=== PATIENT | male | born 1965 | race Caucasian/White ===

== ENCOUNTER 2022-04-04 08:05 | Emergency (ER) | payer OTHER, SELFPAY ==
[2022-04-04] MEDS ORDERED: dexAMETHasone 10 MG/ML VIAL ONE (08:23)
[2022-04-04] MEDS ORDERED: CYCLOBENZAPRINE 10 MG TAB ONE (08:24)
--- NOTE | 2022-04-04 09:02 | RAD REPORT ---
EXAM DESCRIPTION: RAD - Lumbar Spine 3 Views - 04/04/2022 8:55 am CLINICAL HISTORY: Back pain FINDINGS: Pedicular screws united by rods have been placed L4-S1. A lucency is present within a metal bar which extends horizontally posterior to L5 presumably a break in the hardware. Marked anterior subluxation L5 on S1 with disc space narrowing. Curvilinear wire along the right aspect of T12 to the L4 presumably a neurostimulator device and shou ld be correlated clinically.
--- NOTE | 2022-04-04 09:10 | EDPHYS ---
Physician Documentation [facility] Name: Naveen Rudolph Age: 57 yrs Sex: Male : 1965 Arrival Date: 04/04/2022 Time: 08:09 Bed 13 Private MD: ED Physician Jeremy Mejia HPI: 04/04 08:08 This 57 yrs old Male presents to ER via Ambulatory with complaints of Back Pain. jh7 08:08 The patient presents with pain that is chronic, with no known mechanism of injury. The jh7 symptoms are located in the lumbar area and sacrum. Associated signs and symptoms: Pertinent negatives: abdominal pain, chest pain, dysuria, fever, nausea, tingling, vomiting. 57-year-old male presents with chronic back pain for over a year. Patient states that he was injured in 1990 and had a lumbar fusion in 2005. States that he injured his back again a year ago and had a recent x-ray at a chiropractor showing subluxation at L5. Denies any new symptoms just states that he has chronic pain. Reports that pain worsens with position changes. Denies dysuria or any new symptoms.. Historical: - Allergies: 08:19 No Known Allergies; iw - Home Meds: 08:19 None [Active]; iw - PMHx: 08:19 back pain; iw - PSHx: 08:19 lumbar fusion; iw - Immunization history:: Client reports receiving the 2nd dose of the Covid vaccine. - Social history:: Smoking status: Patient denies any tobacco usage or history of. ROS: 08:08 Constitutional: Negative for fever, chills, and weight loss, Eyes: Negative for injury, jh7 pain, redness, and discharge, Neck: Negative for injury, pain, and swelling, Cardiovascular: Negative for chest pain, palpitations, and edema, Respiratory: Negative for shortness of breath, cough, wheezing, and pleuritic chest pain, Abdomen/GI: Negative for abdominal pain, nausea, vomiting, diarrhea, and constipation, MS/Extremity: Negative for injury and deformity, Skin: Negative for injury, rash, and discoloration, Neuro: Negative for headache, weakness, numbness, tingling, and seizure. 08:08 Back: Positive for pain at rest, pain with movement, Negative for acute changes. 08:08 All other systems are negative. Exam: 08:08 Constitutional: This is a well developed, well nourished patient who is awake, alert, jh7 and in no acute distress. Head/Face: Normocephalic, atraumatic. Eyes: Pupils equal round and reactive to light, extra-ocular motions intact. Lids and lashes normal. Conjunctiva and sclera are non-icteric and not injected. Cornea within normal limits. Periorbital areas with no swelling, redness, or edema. Neck: Trachea midline, no thyromegaly or masses palpated, and no cervical lymphadenopathy. Supple, full range of motion without nuchal rigidity, or vertebral point tenderness. No Meningismus. Cardiovascular: Regular rate and rhythm with a normal S1 and S2. No gallops, murmurs, or rubs. Normal PMI, no JVD. No pulse deficits. Respiratory: Lungs have equal breath sounds bilaterally, clear to auscultation and percussion. No rales, rhonchi or wheezes noted. No increased work of breathing, no retractions or nasal flaring. Abdomen/GI: Soft, non-tender, with normal bowel sounds. No distension or tympany. No guarding or rebound. No evidence of tenderness throughout. Skin: Warm, dry with normal turgor. Normal color with no rashes, no lesions, and no evidence of cellulitis. MS/ Extremity: Pulses equal, no cyanosis. Neurovascular intact. Full, normal range of motion. Neuro: Awake and alert, GCS 15, oriented to person, place, time, and situation. Cranial nerves II-XII grossly intact. Motor strength 5/5 in all extremities. Sensory grossly intact. Cerebellar exam normal. Antalgic gait. 08:08 Back: pain, that is moderate, of the sacrum and lumbar area, ROM is painful, with all movement, normal spinal alignment noted, CVA tenderness, is absent, muscle spasm, is appreciated in the lumbar area. Vital Signs: 08:19 BP 122 / 90; Pulse 81; Resp 16; Temp 98.4; Pulse Ox 99% on R/A; Weight 64.86 kg; Height iw 5 ft. 8 in. (172.72 cm); Pain 10/10; 08:57 BP 118 / 88; Pulse 80; Resp 18; Pulse Ox 98% ; ko1 08:19 Body Mass Index 21.74 (64.86 kg, 172.72 cm) iw MDM: 08:10 Patient medically screened. 7 08:40 ED course: Pt requests repeat x-rays because he states that a few weeks ago he did not jh7 fall but that he may have strained his back at the grocery store.. 09:15 Differential diagnosis: chronic back pain, Fracture Ligament Injury ruptured disc, jh7 spinal injury. Data reviewed: vital signs, nurses notes, radiologic studies, plain films. I considered the following discharge prescriptions or medication management in the emergency department Medications were administered in the Emergency Department. See MAR. Independent interpretation of the following test(s) in the Emergency Department X-Ray: My interpretation is no acute changes. Care significantly affected by the following Social Determinants of Health: Poor access to healthcare and/or lack of insurance. Counseling: I had a detailed discussion with the patient and/or guardian regarding: the historical points, exam findings, and any diagnostic results supporting the discharge/admit diagnosis, the need for outpatient follow up, a orthopedic surgeon. Response to treatment: the patient's symptoms have mildly improved after treatment. 04/04 08:40 Order name: Lumbar Spine (3 Views) XRAY [facility] 04/04 09:03 Order name: RAD; Complete Time: 09:04 EDMS Administered Medications: 08:23 Drug: Flexeril (cyclobenzaprine) 10 mg Route: PO; ko1 08:45 Follow up: Response: No adverse reaction ko1 08:23 Drug: Decadron (dexamethasone) 10 mg Route: IM; Site: left gluteus; ko1 08:45 Follow up: Response: No adverse reaction ko1 09:16 Drug: HYDROcodone-acetaminophen 5 mg-325 mg 1 tabs Route: PO; ko1 Disposition: 08:52 PA/PROMOTIONAL MARKETING AGENT's history reviewed, patient interviewed, and examined. HPI: 57-year-old male with ms3 past medical history of chronic back pain presents for back pain. Patient states he had a accident in 1990 and lumbar fusion in 2003 or 2004. Patient states he fell 1 year ago. Patient has seen chiropractics and states it was noted that one of his disc had slipped forward. Patient denies urinary or bowel incontinence, numbness, weakness. My personal exam of patient reveals: On exam patient is alert and oriented x4, no apparent distress, nontoxic appearing, ambulatory in the emergency department. Heart rate and rhythm are regular without murmurs rubs or gallops. Lungs are clear to auscultation bilaterally. Abdomen nontender to palpation with bowel sounds present. Skin is dry, and without rashes. I agree with assessment and care plan and confirm the diagnosis (es) above. Disposition Summary: 04/04/22 09:09 Discharge Ordered Location: Home [facility] Problem: chronic [facility] Symptoms: are unchanged [facility] Condition: Fair [facility] Diagnosis - Low back pain [facility] Followup: [facility] - With: Private Physician - When: 2 - 3 days - Reason: Recheck today's complaints Discharge Instructions: - Discharge Summary Sheet [facility] - Chronic Back Pain [facility] Forms: - Medication Reconciliation Form [facility] - Thank You Letter [facility] Prescriptions: - Naprosyn 500 mg Oral Tablet - take 1 tablet by ORAL route 2 times per day take with food; 30 tablet; Refills: [facility] 0, Product Selection Permitted - Zanaflex 4 mg Oral Tablet - take 1 tablet by ORAL route every 8 hours As needed; 20 tablet; Refills: 0, jh7 Product Selection Permitted Signatures: Dispatcher [employer] Mena Jones, RN RN iw Jeremy Mejia DO DO ms3 Lola Bhakta, MANAGER DISCOVERY MANAGER DISCOVERY 7 Lore Soliman, RN RN ko1 Corrections: (The following items were deleted from the chart) 09:16 08:08 57-year-old male presents with chronic back pain for over a year. Patient states [facility] that he was injured in 1990 and had a lumbar fusion in 2005. States that he injured his back again a year ago and had a recent x-ray at a chiropractor showing herniated disc at L4-L5. Denies any new symptoms just states that he has chronic pain. Reports that pain worsens with position changes. Denies dysuria or any new symptoms.. [facility]
--- NOTE | 2022-04-04 09:10 | ER ---
Nurse's Notes [facility] Name: Naveen Rudolph Age: 57 yrs Sex: Male : 1965 Arrival Date: 04/04/2022 Time: 08:09 Bed 13 Private MD: Diagnosis: Low back pain Presentation: 04/04 08:14 Chief complaint: Patient states: lower back pain for over a year, has previous fusion iw un lumbar spine, has not had insurance X 1 year and is unable to follow up with his previous surgeon. Coronavirus screen: At this time, the client does not indicate any symptoms associated with coronavirus-19. Ebola Screen: Patient negative for fever greater than or equal to 101.5 degrees Fahrenheit, and additional compatible Ebola Virus Disease symptoms Patient denies exposure to infectious person. Patient denies travel to an Ebola-affected area in the 21 days before illness onset. No symptoms or risks identified at this time. Initial Sepsis Screen: Does the patient meet any 2 criteria? No. Patient's initial sepsis screen is negative. Does the patient have a suspected source of infection? No. Patient's initial sepsis screen is negative. Risk Assessment: Do you want to hurt yourself or someone else? Patient reports no desire to harm self or others. Onset of symptoms was March 2021. 08:14 Method Of Arrival: Ambulatory iw 08:16 Acuity: DONTE 3 iw Historical: - Allergies: 08:19 No Known Allergies; iw - Home Meds: 08:19 None [Active]; iw - PMHx: 08:19 back pain; iw - PSHx: 08:19 lumbar fusion; iw - Immunization history:: Client reports receiving the 2nd dose of the Covid vaccine. - Social history:: Smoking status: Patient denies any tobacco usage or history of. Screenin:20 [facility] ED Fall Risk Assessment (Adult) History of falling in the last 3 months, ko1 including since admission No falls in past 3 months (0 pts) Confusion or Disorientation No (0 pts) Intoxicated or Sedated No (0 pts) Impaired Gait Yes (1 pt) Mobility Assist Device Used Yes (1 pt) Altered Elimination No (0 pt) Score/Fall Risk Level 0 - 2 = Low Risk Oriented to surroundings, Maintained a safe environment, Educated pt \T\ family on fall prevention, incl call for assistance when getting out of bed, Assessed \T\ reinforced patient's understanding of fall precautions, Provided non-skid footwear, Hourly rounding (assess needs \T\ fall precautionary measures) done, Used ambulatory aids as needed (educated on \T\ assisted with), Used gait belt as appropriate. Abuse screen: Denies threats or abuse. Denies injuries from another. Nutritional screening: No deficits noted. Tuberculosis screening: No symptoms or risk factors identified. Assessment: 08:20 General: Appears in no apparent distress. uncomfortable, Behavior is calm, cooperative, ko1 appropriate for age. Pain: Complains of pain in sacrum and lumbar area. Neuro: Level of Consciousness is awake, alert, obeys commands, Oriented to person, place, time, situation, Appropriate for age Tool Turret Lathe Set Up Operator are equal bilaterally Moves all extremities. Full function Gait is unsteady, Speech is normal, Facial symmetry appears normal, Pupils are PERRLA, Pupil Size: 3mm Intact. Cardiovascular: No deficits noted. Respiratory: No deficits noted. GI: No deficits noted. : No deficits noted. EENT: No deficits noted. Derm: No deficits noted. Musculoskeletal: No deficits noted. Vital Signs: 08:19 BP 122 / 90; Pulse 81; Resp 16; Temp 98.4; Pulse Ox 99% on R/A; Weight 64.86 kg; Height iw 5 ft. 8 in. (172.72 cm); Pain 10/10; 08:57 BP 118 / 88; Pulse 80; Resp 18; Pulse Ox 98% ; ko1 08:19 Body Mass Index 21.74 (64.86 kg, 172.72 cm) ED Course: 08:09 Patient arrived in ED. as 08:10 L[facility]NP [facility] 7 08:10 Lore Soliman, RN is Primary Nurse. ko1 08:16 Triage completed. iw 08:16 Arm band placed on. iw 08:20 Patient has correct armband on for positive identification. Fall risk band placed. Bed ko1 in low position. Call light in reach. Pulse ox on. NIBP on. 08:20 No provider procedures requiring assistance completed. Patient did not have IV access ko1 during this emergency room visit. 08:46 Patient moved to radiology via wheelchair. ko1 08:52 Jeremy Mejia DO is Attending Physician. ms3 08:57 Patient moved back from radiology. ko1 Administered Medications: 08:23 Drug: Flexeril (cyclobenzaprine) 10 mg Route: PO; ko1 08:45 Follow up: Response: No adverse reaction ko1 08:23 Drug: Decadron (dexamethasone) 10 mg Route: IM; Site: left gluteus; ko1 08:45 Follow up: Response: No adverse reaction ko1 09:16 Drug: HYDROcodone-acetaminophen 5 mg-325 mg 1 tabs Route: PO; ko1 Medication: 08:20 VIS not applicable for this client. ko1 Outcome: 09:09 Discharge ordered by . jacques 09:26 Discharged to home ambulatory. ko1 09:26 Condition: improved 09:26 Discharge instructions given to patient, Instructed on discharge instructions, follow up and referral plans. Demonstrated understanding of instructions, follow-up care. 09:26 Patient left the ED. ko1 Signatures: Marli Lay Irene, RN RN eJremy Dalal DO DO ms3 Lola Bhakta, DIRECTOR AERONAUTICS COMMISSION DIRECTOR AERONAUTICS COMMISSION [facility] Lore Soliman, RN RN ko1
[2022-04-04] MEDS ORDERED: HYDROCODONE/APAP 5/325 MG TAB ONE (09:16)
[2022-04-04 09:31] VITALS: TEMP 98.4
[2022-04-04 09:33] VITALS: BP 118/88; O2SAT 98
== END 2022-04-04 09:26 | disposition home or self-care (01) ==
LOC: ER 08:05
DX: M54.50 Low back pain, unspecified (principal)
CPT/HCPCS: 72100; 96372; 99283; J1100

== ENCOUNTER 2022-08-03 08:21 | Emergency (ER) | payer OTHER, SELFPAY ==
--- NOTE | 2022-08-03 08:42 | EDPHYS ---
Physician Documentation [facility] Name: Naveen Rudolph Age: 57 yrs Sex: Male : 1965 Arrival Date: 08/03/2022 Time: 08:21 Bed IW2 Private MD: ED Physician Yehuda Barclay HPI: 08/03 08:38 This 57 yrs old Male presents to ER via Unassigned with complaints of Low Back Pain. snw 08:38 The patient presents with pain and decreased range of motion, and tenderness. The snw symptoms are located in the low back. The pain does not radiate. Onset: The symptoms/episode began/occurred gradually, 18 year(s) ago, and became worse 3 day(s) ago. Associated signs and symptoms: The patient has no apparent associated signs or symptoms. Severity of symptoms: At their worst the symptoms were moderate, severe. [facility] last week. Historical: - PMHx: 09:33 Back pain; iw - PSHx: 09:33 lumbar fusion; iw ROS: 08:35 Constitutional: Negative for fever, chills, and weight loss, Eyes: Negative for injury, snw pain, redness, and discharge, ENT: Negative for injury, pain, and discharge, Neck: Negative for injury, pain, and swelling, Cardiovascular: Negative for chest pain, palpitations, and edema, Respiratory: Negative for shortness of breath, cough, wheezing, and pleuritic chest pain, Abdomen/GI: Negative for abdominal pain, nausea, vomiting, diarrhea, and constipation, : Negative for injury, bleeding, discharge, and swelling, MS/Extremity: Negative for injury and deformity, Skin: Negative for injury, rash, and discoloration, Neuro: Negative for headache, weakness, numbness, tingling, and seizure. 08:35 Back: Positive for decreased range of motion, pain at rest, pain with movement, of the low back area. Exam: 08:35 Constitutional: This is a well developed, well nourished patient who is awake, alert, snw and in no acute distress. Head/Face: Normocephalic, atraumatic. Eyes: Pupils equal round and reactive to light, extra-ocular motions intact. Lids and lashes normal. Conjunctiva and sclera are non-icteric and not injected. Cornea within normal limits. Periorbital areas with no swelling, redness, or edema. ENT: Nares patent. No nasal discharge, no septal abnormalities noted. Tympanic membranes are normal and external auditory canals are clear. Oropharynx with no redness, swelling, or masses, exudates, or evidence of obstruction, uvula midline. Mucous membranes moist. Neck: Trachea midline, no thyromegaly or masses palpated, and no cervical lymphadenopathy. Supple, full range of motion without nuchal rigidity, or vertebral point tenderness. No Meningismus. Chest/axilla: Normal chest wall appearance and motion. Nontender with no deformity. No lesions are appreciated. Cardiovascular: Regular rate and rhythm with a normal S1 and S2. No gallops, murmurs, or rubs. Normal PMI, no JVD. No pulse deficits. Respiratory: Lungs have equal breath sounds bilaterally, clear to auscultation and percussion. No rales, rhonchi or wheezes noted. No increased work of breathing, no retractions or nasal flaring. Abdomen/GI: Soft, non-tender, with normal bowel sounds. No distension or tympany. No guarding or rebound. No evidence of tenderness throughout. Skin: Warm, dry with normal turgor. Normal color with no rashes, no lesions, and no evidence of cellulitis. MS/ Extremity: Pulses equal, no cyanosis. Neurovascular intact. Full, normal range of motion. Neuro: Awake and alert, GCS 15, oriented to person, place, time, and situation. Cranial nerves II-XII grossly intact. Motor strength 5/5 in all extremities. Sensory grossly intact. Cerebellar exam normal. Normal gait. Psych: Awake, alert, with orientation to person, place and time. Behavior, mood, and affect are within normal limits. 08:35 Back: pain, that is moderate, of the low back area, ROM is painful, with all movement. Vital Signs: 08:36 BP 142 / 93; Pulse 78; Resp 20; Temp 98; Pulse Ox 97% ; Weight 64.86 kg; Height 5 ft. 8 snw in. ; Pain 10/10; 08:36 Body Mass Index 21.74 (64.86 kg, 172.72 cm) snw 08:36 Pain Scale: Adult snw MDM: 08:40 Differential diagnosis: arthritis, strain, fracture, sciatica, Herniated disc. Data snw reviewed: vital signs, nurses notes. I considered the following discharge prescriptions or medication management in the emergency department Medications were administered in the Emergency Department. See MAR. Counseling: I had a detailed discussion with the patient and/or guardian regarding: the historical points, exam findings, and any diagnostic results supporting the discharge/admit diagnosis, the need for outpatient follow up, to return to the emergency department if symptoms worsen or persist or if there are any questions or concerns that arise at home. Special discussion: I have referred the patient to see his PCP for further evaluation of high blood pressure. Based on the history and exam findings, there is no indication for further emergent testing or inpatient evaluation. I discussed with the patient/guardian the need to see the back specialist for further evaluation of the symptoms. I discussed with the patient/guardian the need to see the primary care provider for further evaluation of the symptoms. 08:41 Patient medically screened. snw Administered Medications: 09:36 Drug: Ketorolac IM 30 mg Route: IM; Site: right gluteus; iw 09:50 Follow up: Response: No adverse reaction iw 09:36 Drug: Diazepam PO 5 mg Route: PO; iw 10:00 Follow up: Response: No adverse reaction iw Disposition Summary: 08/03/22 08:41 Discharge Ordered Location: Home snw Condition: Stable snw Diagnosis - Low back pain snw Followup: snw - With: Emergency Department - When: As needed - Reason: Worsening of condition Followup: snw - With: Private Physician - When: 5 - 6 days - Reason: Recheck today's complaints, Continuance of care, Re-evaluation by your physician Discharge Instructions: - Discharge Summary Sheet snw - Chronic Back Pain snw - Heat Therapy snw Forms: - Medication Reconciliation Form snw - Thank You Letter snw - Antibiotic Education snw - Prescription Opioid Use snw Prescriptions: - orphenadrine citrate 100 mg Oral Tablet Sustained Release - take 1 tablet by ORAL route 2 times per day As needed; 20 tablet; Refills: 0, snw Product Selection Permitted - Pepcid 20 mg Oral Tablet - take 1 tablet by ORAL route once daily; 20 tablet; Refills: 0, Product snw Selection Permitted Signatures: Ese Shannon, MALLORIEC PRODUCTION WOOD CRAFTSMAN-Csnw Mena Salinas RN RN iw
[2022-08-03] MEDS ORDERED: KETOROLAC 30 MG/ML INJ ONE (09:36)
[2022-08-03] MEDS ORDERED: DIAZEPAM 5 MG TABLET ONE (09:38)
--- NOTE | 2022-08-03 09:52 | ER ---
Nurse's Notes [facility] Name: Naveen Rudolph Age: 57 yrs Sex: Male : 1965 Arrival Date: 08/03/2022 Time: 08:21 Bed IW2 Private MD: Diagnosis: Low back pain Presentation: 08/03 09:32 Chief complaint: Patient states: lower back pain/spasms , has hx of lumbar fusion. iw Coronavirus screen: At this time, the client does not indicate any symptoms associated with coronavirus-19. Ebola Screen: Patient negative for fever greater than or equal to 101.5 degrees Fahrenheit, and additional compatible Ebola Virus Disease symptoms Patient denies exposure to infectious person. Patient denies travel to an Ebola-affected area in the 21 days before illness onset. No symptoms or risks identified at this time. Risk Assessment: Do you want to hurt yourself or someone else? Patient reports no desire to harm self or others. Onset of symptoms was August 03, 2022. 09:32 Method Of Arrival: Wheelchair iw 09:32 Acuity: DONTE 4 iw Historical: - PMHx: 09:33 Back pain; iw - PSHx: 09:33 lumbar fusion; iw Screenin:49 [facility] ED Fall Risk Assessment (Adult) History of falling in the last 3 months, iw including since admission. Abuse screen: Denies threats or abuse. Denies injuries from another. Nutritional screening: No deficits noted. Tuberculosis screening: No symptoms or risk factors identified. Assessment: 09:48 General: Appears in no apparent distress. Behavior is calm, cooperative. Pain: iw Complains of pain in low back area. Neuro: Level of Consciousness is awake, alert, obeys commands, Oriented to person, place, time, situation, Moves all extremities. Cardiovascular: Patient's skin is warm and dry. Vital Signs: 08:36 BP 142 / 93; Pulse 78; Resp 20; Temp 98; Pulse Ox 97% ; Weight 64.86 kg; Height 5 ft. 8 snw in. ; Pain 10/10; 08:36 Body Mass Index 21.74 (64.86 kg, 172.72 cm) snw 08:36 Pain Scale: Adult snw ED Course: 08:24 Patient arrived in ED. im 08:25 Ese Shannon FNP-C is PHCP. snw 08:25 Yehuda Barclay MD is Attending Physician. snw 08:40 Ese Shannon FNP-C is PHCP. snw 09:24 Mena Salinas, RN is Primary Nurse. iw 09:33 Triage completed. iw 09:48 No provider procedures requiring assistance completed. Patient did not have IV access iw during this emergency room visit. 09:48 Patient has correct armband on for positive identification. iw Administered Medications: 09:36 Drug: Ketorolac IM 30 mg Route: IM; Site: right gluteus; iw 09:50 Follow up: Response: No adverse reaction iw 09:36 Drug: Diazepam PO 5 mg Route: PO; iw 10:00 Follow up: Response: No adverse reaction iw Outcome: 08:41 Discharge ordered by . snw 09:51 Patient left the ED. iw Signatures: Ese Shannon FNP-C TERMINAL GAUGER SUPERVISOR-Csnw eMna Salinas, RN RN iw Lavonne Galdamez im
[2022-08-03 09:56] VITALS: BP 142/93; TEMP 98; O2SAT 97
== END 2022-08-03 09:51 | disposition home or self-care (01) ==
LOC: ER 08:21
DX: M54.50 Low back pain, unspecified (principal)
CPT/HCPCS: 96372; 99284

== ENCOUNTER 2022-10-08 14:31 | Emergency (ER) | payer OTHER ==
[2022-10-08] MEDS ORDERED: dexAMETHasone 10 MG/ML VIAL ONE (16:01)
[2022-10-08] MEDS ORDERED: KETOROLAC 30 MG/ML INJ ONE (16:01)
--- NOTE | 2022-10-08 16:38 | EDPHYS ---
Physician Documentation [facility] Name: Naveen Rudolph Age: 57 yrs Sex: Male : 1965 Arrival Date: 10/08/2022 Time: 14:31 Bed 9 Private MD: ED Physician Cande Javier HPI: 10/08 15:45 This 57 yrs old Male presents to ER via Ambulatory with complaints of Back Pain. cp 15:45 The patient presents with pain that is chronic. The symptoms are located in the low cp back. 15:45 Onset: The symptoms/episode began/occurred chronically has been worse over past 6 cp months. 15:45 The pain radiates to the buttocks and right and left upper legs. cp 15:45 Associated signs and symptoms: Pertinent negatives: abdominal pain, dysuria, fever, cp incontinence, numbness, urinary retention, weakness. 15:45 The problem was sustained Patient reports worsening low back pain today. Denies fall cp and/or trauma. Hx of chronic low back pain with lumbar fusion. Severity of symptoms: in the emergency department the symptoms. Historical: - Allergies: 14:57 No Known Allergies; iw - PMHx: 14:57 Back pain; iw - PSHx: 14:57 lumbar fusion; iw - Immunization history:: Adult Immunizations unknown. - Social history:: Smoking status: unknown. ROS: 15:50 Constitutional: Negative for body aches, chills, fever, poor PO intake. cp 15:50 Cardiovascular: Negative for chest pain, edema, palpitations. cp Exam: 15:55 Constitutional: The patient appears in no acute distress, alert, awake, cp non-diaphoretic, non-toxic, well developed, well nourished, uncomfortable. 15:55 Head/Face: Normocephalic, atraumatic. cp 15:55 Eyes: Periorbital structures: appear normal, Conjunctiva: normal, no exudate, no injection, Sclera: no appreciated abnormality, Lids and lashes: appear normal, bilaterally. 15:55 ENT: External ear(s): are unremarkable, Nose: is normal, Mouth: Lips: moist, Oral mucosa: pink and intact, moist, Posterior pharynx: is normal, airway is patent, no erythema, no exudate. 15:55 Chest/axilla: Inspection: normal. 15:55 Cardiovascular: Rate: normal, Rhythm: regular, Edema: is not appreciated, JVD: is not appreciated. 15:55 Respiratory: the patient does not display signs of respiratory distress, Respirations: normal, no use of accessory muscles, no retractions, labored breathing, is not present, Breath sounds: are clear throughout, no decreased breath sounds, no stridor, no wheezing. 15:55 Abdomen/GI: Inspection: abdomen appears normal, Bowel sounds: active, all quadrants, Palpation: abdomen is soft and non-tender, in all quadrants. 15:55 Back: pain, that is moderate, of the low back area, ROM is painful, with all movement. 15:55 Skin: cellulitis, is not appreciated, no rash present. 15:55 Neuro: Motor: moves all fours, strength is normal, Sensation: no obvious gross deficits, Gait: is steady, with use of walker, Deep tendon reflexes are 2+ (normal) in the right patellar, right Achilles, left patellar and left Achilles. Vital Signs: 14:55 BP 117 / 83; Pulse 98; Resp 16; Temp 98.9; Pulse Ox 97% on R/A; Weight 64.86 kg; Height iw 5 ft. 8 in. ; Pain 10/10; 16:30 Pain 2/10; jl7 17:00 BP 115 / 81; Pulse 95; Resp 15; Pulse Ox 100% ; Pain 2/10; jl7 14:55 Body Mass Index 21.74 (64.86 kg, 172.72 cm) iw 14:55 Pain Scale: Adult iw 16:30 Pain Scale: Adult jl7 17:00 Pain Scale: Adult jl7 MDM: 15:03 Patient medically screened. 16:00 Differential diagnosis: chronic back pain, ruptured disc, Ureterolithiasis vertebral cp fracture, sciatica, spinal stenosis, cauda equina. 16:35 Data reviewed: vital signs, nurses notes. cp 16:35 I considered the following discharge prescriptions or medication management in the emergency department Medications were administered in the Emergency Department. See MAR. Care significantly affected by the following chronic conditions: low back pain. Counseling: I had a detailed discussion with the patient and/or guardian regarding the historical points, exam findings, and any diagnostic results supporting the discharge/admit diagnosis, to return to the emergency department if symptoms worsen or persist or if there are any questions or concerns that arise at home. Response to treatment: the patient's symptoms have markedly improved after treatment, and as a result, I will discharge patient. Administered Medications: 15:57 Drug: Dexamethasone IM 10 mg Route: IM; Site: left deltoid; cm10 16:59 Follow up: Response: No adverse reaction jl7 15:57 Drug: Ketorolac IM 30 mg Route: IM; Site: right deltoid; cm10 16:30 Follow up: Pain 2/10 Adult; Response: No adverse reaction; Pain is decreased jl7 16:45 Drug: Lidoderm Topical Patch 5 % (700 mg/patch) 1 patches Route: Topical; Site: jl7 affected area; 17:00 Follow up: Response: No adverse reaction jl7 17:00 Follow up: Response: Medication administered at discharge. jl7 Disposition Summary: 10/08/22 16:36 Discharge Ordered Location: Home cp Problem: chronic cp Symptoms: have improved cp Condition: Stable cp Diagnosis - Lumbago with sciatica cp Followup: cp - With: Private Physician - When: 2 - 3 days - Reason: Recheck today's complaints Discharge Instructions: - Discharge Summary Sheet cp - Chronic Pain, Adult cp - Sciatica cp Forms: - Medication Reconciliation Form cp - Thank You Letter cp - Antibiotic Education cp - Prescription Opioid Use cp - Patient Portal Instructions cp - Leadership Thank You Letter cp Prescriptions: - Protonix 40 mg Oral Tablet - take 1 tablet by ORAL route once daily; 30 tablet; Refills: 0, Product cp Selection Permitted - Baclofen 10 mg Oral Tablet - take 1 tablet by ORAL route 3 times per day; 20 tablet; Refills: 0, Product cp Selection Permitted - Medrol (Juan) 4 mg Oral Tablets, Dose Pack - take 1 tablet by ORAL route as directed - follow package instructions; 1 cp packet; Refills: 0, Product Selection Permitted Signatures: Mena Salinas RN RN Yehuda Wallace PA PA cp Leal, Jahala, RN RN jl7 Farida Lay RN RN cm10
--- NOTE | 2022-10-08 16:38 | ER ---
Nurse's Notes [facility] Name: Naveen Rudolph Age: 57 yrs Sex: Male : 1965 Arrival Date: 10/08/2022 Time: 14:31 Bed 9 Private MD: Diagnosis: Lumbago with sciatica Presentation: 10/08 14:55 Chief complaint: Patient states: lumbar back pain , has chronic issues with back , iw lumbar fusion in 2005 , this episode started on and off for 6 months , today ot got really bad and i almost fell because my back felt locked up. Coronavirus screen: At this time, the client does not indicate any symptoms associated with coronavirus-19. Ebola Screen: Patient negative for fever greater than or equal to 101.5 degrees Fahrenheit, and additional compatible Ebola Virus Disease symptoms Patient denies exposure to infectious person. Patient denies travel to an Ebola-affected area in the 21 days before illness onset. No symptoms or risks identified at this time. Initial Sepsis Screen: Does the patient meet any 2 criteria? No. Patient's initial sepsis screen is negative. Does the patient have a suspected source of infection? No. Patient's initial sepsis screen is negative. Risk Assessment: Do you want to hurt yourself or someone else? Patient reports no desire to harm self or others. Onset of symptoms was October 08, 2022. 14:55 Method Of Arrival: Ambulatory 14:55 Acuity: DONTE 4 iw Historical: - Allergies: 14:57 No Known Allergies; iw - PMHx: 14:57 Back pain; iw - PSHx: 14:57 lumbar fusion; iw - Immunization history:: Adult Immunizations unknown. - Social history:: Smoking status: unknown. Screenin:02 [facility] ED Fall Risk Assessment (Adult) History of falling in the last 3 months, jl7 including since admission No falls in past 3 months (0 pts) Confusion or Disorientation No (0 pts) Intoxicated or Sedated No (0 pts) Impaired Gait No (0 pts) Mobility Assist Device Used Yes (1 pt) Altered Elimination No (0 pt) Score/Fall Risk Level 0 - 2 = Low Risk Oriented to surroundings, Maintained a safe environment. Abuse screen: Denies threats or abuse. Denies injuries from another. Nutritional screening: No deficits noted. Tuberculosis screening: No symptoms or risk factors identified. Assessment: 16:02 General: Appears in no apparent distress. uncomfortable, Behavior is calm, cooperative, jl7 appropriate for age. Pain: Complains of pain in back Pain currently is 10 out of 10 on a pain scale. Neuro: Level of Consciousness is awake, alert, obeys commands, Oriented to person, place, time, situation, Gait is ambulatory with Rollator . Cardiovascular: Patient's skin is warm and dry. Respiratory: Airway is patent Respiratory effort is even, unlabored, Respiratory pattern is regular, symmetrical. Derm: Skin is pink, warm \T\ dry. Vital Signs: 14:55 BP 117 / 83; Pulse 98; Resp 16; Temp 98.9; Pulse Ox 97% on R/A; Weight 64.86 kg; Height iw 5 ft. 8 in. ; Pain 10/10; 16:30 Pain 2/10; jl7 17:00 BP 115 / 81; Pulse 95; Resp 15; Pulse Ox 100% ; Pain 2/10; jl7 14:55 Body Mass Index 21.74 (64.86 kg, 172.72 cm) iw 14:55 Pain Scale: Adult iw 16:30 Pain Scale: Adult jl7 17:00 Pain Scale: Adult jl7 ED Course: 14:37 Patient arrived in ED. rg4 14:48 Yehuda Alvarez PA is PHCP. cp 14:48 Cande Javier MD is Attending Physician. cp 14:57 Triage completed. iw 14:57 Arm band placed on. iw 15:12 Fernando Hughes, RN is Primary Nurse. jl7 16:12 No provider procedures requiring assistance completed. jl7 16:30 Provided Education on: use of call chambers. jl7 16:30 Patient has correct armband on for positive identification. jl7 17:00 Patient did not have IV access during this emergency room visit. jl7 Administered Medications: 15:57 Drug: Dexamethasone IM 10 mg Route: IM; Site: left deltoid; cm10 16:59 Follow up: Response: No adverse reaction jl7 15:57 Drug: Ketorolac IM 30 mg Route: IM; Site: right deltoid; cm10 16:30 Follow up: Pain 2/10 Adult; Response: No adverse reaction; Pain is decreased jl7 16:45 Drug: Lidoderm Topical Patch 5 % (700 mg/patch) 1 patches Route: Topical; Site: jl7 affected area; 17:00 Follow up: Response: No adverse reaction jl7 17:00 Follow up: Response: Medication administered at discharge. jl7 Medication: 16:02 VIS not applicable for this client. jl7 Outcome: 16:36 Discharge ordered by . hetal 17:00 Discharged to home ambulatory. jl7 17:00 Condition: stable 17:00 Discharge instructions given to patient, Instructed on discharge instructions, follow up and referral plans. medication usage, Demonstrated understanding of instructions, follow-up care, medications, Prescriptions given X 1. 17:01 Patient left the ED. jl7 Signatures: Mena Salinas, RN RN iw Yehuda Alvarez PA PA cp Garcia, Rubi rg4 Fernando Hughes RN RN jl7 Farida Lay RN RN cm10 Corrections: (The following items were deleted from the chart) 14:57 14:55 BP 117 / 83; Pulse 98bpm; Resp 16bpm; Pulse Ox 97% RA; Temp 98.9F; Pain 10/10, iw Adult; iw
[2022-10-08] MEDS ORDERED: LIDOCAINE 4% PATCH ONE (16:54)
[2022-10-08 17:25] VITALS: TEMP 98.9
[2022-10-08 17:27] VITALS: BP 115/81; O2SAT 100
== END 2022-10-08 17:01 | disposition home or self-care (01) ==
LOC: ER 14:31
DX: M54.40 Lumbago with sciatica, unspecified side (principal)
CPT/HCPCS: J2001; J1100

== ENCOUNTER 2024-10-06 15:44 | Emergency (ER) | payer OTHER ==
--- OUTSIDE RECORDS SUMMARY | 2024-10-06 15:47 | XMS REPORT | Continuity of Care Document ---
Author Name Unknown Address [address] [place] [address] [address] [place] [address] [facility] Address [address] [place] [address] Care Team Providers Care Chiropractic Care Name Role Phone Erick Attending Clinician Unavailable Erick Admitting Clinician Unavailable Payers Payer Name Policy Type Policy Number Effective Date Expirati on Date Source [id number] Problems Condition Name Condition Details Condition Category Status Onset Date Resolution Date Last Treatment Date Treating Clinician Comments Source Chronic low back pain Chronic Low Back Pain Problem Active 04-20 00:00: 00 [facility] Open fracture of radius AND ulna Open Fracture of Radius and Ulna Problem Active 04-20 00:00: 00 [facility] Social History Smoking Status Start Date Stop Date Source Never Smoker [facility] Medications Ordered Medication Name Filled Medication Name Start Date Stop Date Current Medication? Ordering Clinician Indication Dosage Frequency Signature (SIG) Comments Components Source cyanocobala min (vit B-12) 100 mcg tablet Take 1 tablet every day by oral route. cyanocobala min (vit B-12) 100 mcg tablet Take 1 tablet every day by oral route. No 1 Q1D cyanocobal mims (vit B-12) 100 mcg tablet Take 1 tablet every day by oral route. [facility] famotidine 40 mg tablet Take 0.5 tablets twice a day by oral route. famotidine 40 mg tablet Take 0.5 tablets twice a day by oral route. No .5 BID famotidine 40 mg tablet Take 0.5 tablets twice a day by oral route. [facility] methocarbam ol 500 mg tablet Take 1 tablet 3 times a day by oral route as needed. methocarbam ol 500 mg tablet Take 1 tablet 3 times a day by oral route as needed. No 1 TID methocarba mol 500 mg tablet Take 1 tablet 3 times a day by oral route as needed. [facility] naproxen 500 mg tablet Take 1 tablet twice a day by oral route. naproxen 500 mg tablet Take 1 tablet twice a day by oral route. No 1 BID naproxen 500 mg tablet Take 1 tablet twice a day by oral route. [facility] tizanidine 4 mg tablet Take 1 tablet twice a day by oral route. tizanidine 4 mg tablet Take 1 tablet twice a day by oral route. No 1 BID tizanidine 4 mg tablet Take 1 tablet twice a day by oral route. [facility] Vital Signs Vital Name Observation Time Observation Value Comments S ource BP Diastolic 2023-04-21 00:00:00 78 mm[Hg] [facility] Height 2023-04-21 00:00:00 68 [in_i] [facility] BP Systolic 2023-04-21 00:00:00 122 mm[Hg] [facility] Body Weight 2023-04-21 00:00:00 165 [lb_av] [facility] BMI (Body Mass Index) 2023-04-21 00:00:00 25.1 kg/m2 [facility] Procedures Procedure Date / Time Performed Performing Clinicia n Source X-RAY OF LUMBAR SPINE 2 OR 3 VIEW 2023-04-21 00:00:00 [facility] Open Reduction of Fracture of Radius and Ulna with Internal Fixation [facility] Surgical Procedure on Lumbar Spine [facility] Encounters Start Date/Time End Date/Time Encounter Type Admission Type Attending Clinicians Care Facility Care Department Encounter ID Source 2023-04-21 00:00:00 2023-04-21 00:00:00 Khushi Adams MD: [id number] , [address], [place] [address] , Ph. [facility] [place] - [facility] - [place] - VM_[email or web address] Zaman [id number] [facility]
[2024-10-06] MEDS ORDERED: KETOROLAC 30 MG/ML INJ ONE (16:33)
--- NOTE | 2024-10-06 17:09 | ER ---
Nurse's Notes [facility] Name: Naveen Rudolph Age: 59 yrs Sex: Male : 1965 Arrival Date: 10/06/2024 Time: 15:44 Bed 12 Private MD: Diagnosis: Low back pain;Other injury of muscle, fascia and tendon of lower back;Other chronic pain Presentation: 10/06 16:08 Chief complaint: Patient states: low back pain mostly on right side , has had lumbar iw fusion in 2005 . has been to pain mgmt that gave him shots in his spine, that was 2 years ago , this episode started 3 days ago , denies injury . is on methocarbamol, diclofenac, and Aleve for the back pain now. Coronavirus screen: At this time, the client does not indicate any symptoms associated with coronavirus-19. Ebola Screen: No symptoms or risks identified at this time. Initial Sepsis Screen: Does the patient meet any 2 criteria? No. Patient's initial sepsis screen is negative. Does the patient have a suspected source of infection? No. Patient's initial sepsis screen is negative. Risk Assessment: Do you want to hurt yourself or someone else? Patient reports no desire to harm self or others. Onset of symptoms. 16:08 Method Of Arrival: Ambulatory iw 16:08 Acuity: DONTE 3 iw Historical: - Allergies: 16:10 No Known Allergies; iw - PMHx: 16:10 Back pain; iw - PSHx: 16:10 lumbar fusion; iw - Family history:: not pertinent. Screenin:21 [facility] ED Fall Risk Assessment (Adult) History of falling in the last 3 months, iw including since admission No falls in past 3 months (0 pts) Confusion or Disorientation No (0 pts) Intoxicated or Sedated No (0 pts) Impaired Gait Yes (1 pt) Mobility Assist Device Used Yes (1 pt) Altered Elimination No (0 pt) Score/Fall Risk Level 0 - 2 = Low Risk Oriented to surroundings, Maintained a safe environment. Abuse screen: Denies threats or abuse. Nutritional screening: No deficits noted. Tuberculosis screening: No symptoms or risk factors identified. Assessment: 16:19 Reassessment: pt refused IV and fluids. iw 16:20 General: Appears in no apparent distress. Behavior is calm, cooperative. Pain: iw Complains of pain in left low back and right low back. Neuro: Level of Consciousness is awake, alert, obeys commands, Oriented to person, place, time, situation, Moves all extremities. Full function. Cardiovascular: Patient's skin is warm and dry. Respiratory: Respiratory effort is even, unlabored, Respiratory pattern is regular, symmetrical. GI: Abdomen is flat, non-distended. Derm: Skin is intact, is healthy with good turgor. Musculoskeletal: Range of motion: intact in all extremities. Vital Signs: 16:08 BP 122 / 90; Pulse 102; Resp 18; Temp 98.4; Pulse Ox 96% on R/A; Weight 64.86 kg; iw Height 5 ft. 8 in. ; Pain 8/10; 16:08 Body Mass Index 21.74 (64.86 kg, 172.72 cm) iw 16:08 Pain Scale: Adult iw ED Course: 15:51 Patient arrived in ED. cj3 16:00 Yehuda Barclay MD is Attending Physician. akil 16:08 Triage completed. iw 16:11 Arm band placed on. iw 16:19 Mena Salinas, RN is Primary Nurse. iw 16:42 CT Lumbar Spine Wo Con In Process Unspecified. EDMS 17:08 Jey Paul MD is Referral Physician. akil Administered Medications: 16:19 Not Given (Patient Refused): ns 0.9% 500 ml 500 ml IV at 1 bolus once; to be given as a iw bolus over 30 minutes 17:09 Drug: Ketorolac IM 30 mg IM once Route: IM; Site: left ventrogluteal; iw 17:09 Drug: Dexamethasone PO 10 mg PO once Route: PO; iw Medication: 16:21 VIS not applicable for this client. iw Outcome: 17:09 Discharge ordered by . akil 17:45 Patient left the ED. bc6 Signatures: Dispatcher [employer] EDMS Yehuda Barclay MD MD cha Williams, Irene, RN RN Yara Mares 6 Farida Padgett 3 Corrections: (The following items were deleted from the chart) 16:09 16:08 Chief complaint: Patient states: low back pain mostly on right side , has had iw lumbar fusion in 2005 iw 16:10 16:08 BP 122 / 90; Pulse 105bpm; iw iw 16:11 16:08 Chief complaint: Patient states: low back pain mostly on right side , has had iw lumbar fusion in 2005 . has been to pain mgmt that gave him shots in his spine, that was 2 years ago , this episode started 3 days ago , denies injury iw 16:11 16:08 Chief complaint: Patient states: low back pain mostly on right side , has had iw lumbar fusion in 2005 . has been to pain mgmt that gave him shots in his spine, that was 2 years ago , this episode started 3 days ago , denies injury . is on methocarbamol and Aleve for the back pain now iw
--- NOTE | 2024-10-06 17:09 | EDPHYS ---
Physician Documentation [facility] Name: Naveen Rudolph Age: 59 yrs Sex: Male : 1965 Arrival Date: 10/06/2024 Time: 15:44 Bed 12 Private MD: PAULO Physician Yehuda Barclay HPI: 10/06 17:04 This 59 yrs old Male presents to ER via Ambulatory with complaints of Back akil Pain - LOWER. 17:04 The patient presents with pain that is acute, with no known mechanism of injury, that akil is chronic. The symptoms are located in the low back, lumbar area, left low back and right low back. Onset: The symptoms/episode began/occurred 2 day(s) ago. The pain does not radiate. Associated signs and symptoms: The patient has no apparent associated signs or symptoms. Modifying factors: The patient symptoms are alleviated by nothing, the patient symptoms are aggravated by bending. Severity of symptoms: At their worst the symptoms were moderate, in the emergency department the symptoms are unchanged. The patient has not experienced similar symptoms in the past. Historical: - Allergies: 16:10 No Known Allergies; iw - PMHx: 16:10 Back pain; iw - PSHx: 16:10 lumbar fusion; iw - Family history:: not pertinent. ROS: 17:04 Constitutional: Negative for fever, chills, and weight loss, Eyes: Negative for injury, akil pain, redness, and discharge, ENT: Negative for injury, pain, and discharge, Neck: Negative for injury, pain, and swelling, Cardiovascular: Negative for chest pain, palpitations, and edema, Respiratory: Negative for shortness of breath, cough, wheezing, and pleuritic chest pain, Abdomen/GI: Negative for abdominal pain, nausea, vomiting, diarrhea, and constipation, : Negative for injury, bleeding, discharge, and swelling, MS/Extremity: Negative for injury and deformity, Skin: Negative for injury, rash, and discoloration, Neuro: Negative for headache, weakness, numbness, tingling, and seizure, Psych: Negative for depression, anxiety, suicide ideation, homicidal ideation, and hallucinations, Allergy/Immunology: Negative for hives, rash, and allergies, Endocrine: Negative for neck swelling, polydipsia, polyuria, polyphagia, and marked weight changes, Hematologic/Lymphatic: Negative for swollen nodes, abnormal bleeding, and unusual bruising, 17:04 Back: Positive for injury or acute deformity, decreased range of motion, pain with movement, of the lumbar area, left low back and right low back, Exam: 17:04 Constitutional: This is a well developed, well nourished patient who is awake, alert, akil and in no acute distress. Head/Face: Normocephalic, atraumatic. Eyes: Pupils equal round and reactive to light, extra-ocular motions intact. Lids and lashes normal. Conjunctiva and sclera are non-icteric and not injected. Cornea within normal limits. Periorbital areas with no swelling, redness, or edema. ENT: Nares patent. No nasal discharge, no septal abnormalities noted. Tympanic membranes are normal and external auditory canals are clear. Oropharynx with no redness, swelling, or masses, exudates, or evidence of obstruction, uvula midline. Mucous membranes moist. Neck: Trachea midline, no thyromegaly or masses palpated, and no cervical lymphadenopathy. Supple, full range of motion without nuchal rigidity, or vertebral point tenderness. No Meningismus. Chest/axilla: Normal chest wall appearance and motion. Nontender with no deformity. No lesions are appreciated. Cardiovascular: Regular rate and rhythm with a normal S1 and S2. No gallops, murmurs, or rubs. Normal PMI, no JVD. No pulse deficits. Respiratory: Lungs have equal breath sounds bilaterally, clear to auscultation and percussion. No rales, rhonchi or wheezes noted. No increased work of breathing, no retractions or nasal flaring. Abdomen/GI: Soft, non-tender, with normal bowel sounds. No distension or tympany. No guarding or rebound. No evidence of tenderness throughout. Male : Normal genitalia with no discharge or lesions. Skin: Warm, dry with normal turgor. Normal color with no rashes, no lesions, and no evidence of cellulitis. MS/ Extremity: Pulses equal, no cyanosis. Neurovascular intact. Full, normal range of motion., bilateral aka Neuro: Awake and alert, GCS 15, oriented to person, place, time, and situation. Cranial nerves II-XII grossly intact. Motor strength 5/5 in all extremities. Sensory grossly intact. Cerebellar exam normal. Normal gait. Psych: Awake, alert, with orientation to person, place and time. Behavior, mood, and affect are within normal limits. 17:04 Back: pain, that is moderate, ROM is painful, with flexion, with extension, normal spinal alignment noted, CVA tenderness, is absent, vertebral tenderness, is not appreciated, Vital Signs: 16:08 BP 122 / 90; Pulse 102; Resp 18; Temp 98.4; Pulse Ox 96% on R/A; Weight 64.86 kg; iw Height 5 ft. 8 in. ; Pain 8/10; 16:08 Body Mass Index 21.74 (64.86 kg, 172.72 cm) iw 16:08 Pain Scale: Adult iw MDM: 16:00 Medical Screening Exam initiated akil 17:06 Differential diagnosis: chronic back pain, Fatigue Fracture Osteoarthritis Osteoporosis akil ruptured disc, Scoliosis sickle cell crisis, sprain, Ureterolithiasis vertebral fracture. Data reviewed: vital signs, nurses notes. Consideration of Admission/Observation Escalation of care including admission/observation considered. I considered the following discharge prescriptions or medication management in the emergency department Medications were administered in the Emergency Department. See MAR. Test considered but Not performed: Other Details PT WANTED MEDS ONLY. 10/06 16:01 Order name: CT Lumbar Spine Wo Con akil Administered Medications: 16:19 Not Given (Patient Refused): ns 0.9% 500 ml 500 ml IV at 1 bolus once; to be given as a iw bolus over 30 minutes 17:09 Drug: Ketorolac IM 30 mg IM once Route: IM; Site: left ventrogluteal; iw 17:09 Drug: Dexamethasone PO 10 mg PO once Route: PO; iw Disposition Summary: 10/06/24 17:09 Discharge Ordered Notes: Location: Home akil Problem: new akil Symptoms: have improved akil Condition: Stable akil Diagnosis - Low back pain akil - Other injury of muscle, fascia and tendon of lower back akil - Other chronic pain akil Followup: akil - With: Private Physician - When: 2 - 3 days - Reason: Recheck today's complaints, Continuance of care, Re-evaluation by your physician Followup: akil - With: Jey Paul MD - When: 2 - 3 days - Reason: Recheck today's complaints, Continuance of care, Re-evaluation by your physician Discharge Instructions: - Discharge Summary Sheet akil - Acute Back Pain, Adult akil - Chronic Back Pain akil - Chronic Pain, Adult akil - Radicular Pain akil - Back Exercises [facility] Forms: - Medication Reconciliation Form akil - Antibiotic Education akil - Prescription Opioid Use akil - Patient Portal Instructions [facility] - Leadership Thank You Letter [facility] Prescriptions: - Valium 5 mg Oral Tablet - take 1 tablet ORAL route every 8 hours As needed; 20 tablet; Refills: 0, [facility] Product Selection Permitted - Tylenol-Codeine #3 300mg-30mg Oral tablet - take 2 tablets ORAL route every 6 hours As needed; 20 tablet; Refills: 0, [facility] Product Selection Permitted - Dexamethasone 4mg Oral tablet - take 1 tablet ORAL route daily for 4 days; 4 tablet; Refills: 0, Product [facility] Selection Permitted Signatures: Dispatcher [employer] EDYehuda Mcgee MD MD cha Williams, Irene RN RN iw Corrections: (The following items were deleted from the chart) 16:01 16:01 CBC+H.LAB.BRZ ordered. EDMS EDMS 16:01 16:01 COMPREHENSIVE METABOLIC PANEL+C.LAB.BRZ ordered. EDMS EDMS 16:01 16:01 UA Rfx Andres Cult if indicated+U.LAB.BRZ ordered. EDMS EDMS 16:01 16:01 Spine Lumbar Wo Con+CT.RAD.BRZ ordered. EDMS EDMS
--- NOTE | 2024-10-06 17:31 | RAD REPORT ---
EXAMINATION: CT LUMBAR SPINE WITHOUT CONTRAST CLINICAL INDICATION: Back pain and radiculopathy TECHNIQUE: Axial CT images were obtained through the lumbar spine in soft tissue and bone windows wit hout intravenous contrast. Coronal and Sagittal reformatted images were created from the data set. One or more of the following dose reduction techniques were used: Automated exposure control, adjustm ent of the mA and/ or kV according to patient size, and/or iterative reconstruction. Unless otherwise specified, incidental findings do not require dedicated imaging follow-up. COMPARISON: 2022 x-ray. FINDINGS: For purposes of this dictation, it is assumed that there are 5 non rib-bearing lumbar type vertebrae, and the most caudal fully segmented lumbar vertebra is labeled L5. Mild posterior subluxation T12 on L1. Marked disc space narrowing with vacuum phenomena. Osteophytes with subchondral sclerosis present. The thecal sac is not significantly narrowed. Disc bulge is present. Mild narrowing of the right neural foramina Slight posterior subluxation L1 on L2. Mild spondylosis Mild spondylosis L2-3. Facet hypertrophy L3-4. Mild narrowing of the right neural foramina. Bony protrusion from the right l bee abuts the posterior right aspect of the thecal sac without narrowing it. Pedicular screws united by rods have been placed from L4 to S1. Laminectomies are present. Posterior bony fusion. Artifact from the hardware does obscure evaluation somewhat. Facet hypertrophy is present. Moderate narrowing of the neural foramina bilaterally. Limited evaluation of the thecal sac. Mild to moderate anterior subluxation L5 on S1 with obliteration of the disc space. Facet hypertrophy is present. Moderate narrowing left neural foramina. Limited evaluation of the thecal sac Neurostimulator device has its tip adjacent to the right aspect L3-4. No fracture seen. IMPRESSION: No fracture visualized. Post surgical changes L4-S1. 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
[2024-10-06 21:48] VITALS: BP 122/90; TEMP 98.4; O2SAT 96
== END 2024-10-06 17:45 | disposition home or self-care (01) ==
LOC: ER 15:44
DX: S39.092A Other injury of muscle, fascia and tendon of lower back, initial encounter (principal); G89.29 Other chronic pain
CPT/HCPCS: 72131; J1100